=== PATIENT | female | born 2000 | race Caucasian/White ===

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

== ENCOUNTER 2018-09-15 07:41 | Emergency (ER) | payer OTHER ==
[~2018-09-15] VITALS: Ht 167.6 cm; Wt 79.1 kg
[~2018-09-15 07:41] MED LIST: CIPR500T4 PO; IBUP-1542 PO; METR500T PO; ZOF8 PO
[2018-09-15 08:06] VITALS: Ht 167.6 cm; Wt 79.1 kg
[2018-09-15] MEDS ORDERED: ONDANSETRON 4 MG INJ IV STA (08:19)
[2018-09-15] MEDS ORDERED: morphine 2 MG INJ IV STA ×2 (08:19→10:21)
[2018-09-15] MEDS ORDERED: IBUPROFEN 200 MG TAB ONE (08:30)
[2018-09-15] MEDS ORDERED: SOD CHLORIDE 0.9% 1,000 ML IV ONE (09:00)
--- NOTE | 2018-09-15 12:01 | ERD ---
ER Documentation Chief Complaint Chief Complaint C/O ABD PAIN X 2 DAYS. HPI 17-year-old female presents the emergency department complaining of abdominal pain. Patient states that she has had episodes of abdominal pain in the past. Over the last 2-3 days, patient has had nonspecific abdominal discomfort. The pain is poorly localized and associated with no fevers, chills. She is been nauseous but has had no vomiting. She reports no diarrhea or urinary symptoms. She states that she has a regular menstrual cycles chronically, but no worsening pain/vaginal bleeding or other gynecologic symptoms associated with this discomfort. Currently, she reports the pain is mild to moderate. ROS All systems reviewed and are negative except as per history of present illness. Medications Home Meds Discontinued Scripts Ondansetron Hcl* (Zofran*) 8 Mg Tab, 8 MG PO Q6H PRN for NAUSEA AND OR VOMITING, #20 TAB Prov:JOHNNY GOMEZ MD 09/24/17 Metronidazole* (Flagyl*) 500 Mg Tablet, 500 MG PO TID for 7 Days, TAB Prov:JOHNNY GOMEZ MD 09/24/17 Ciprofloxacin Hcl* (Ciprofloxacin Hcl*) 500 Mg Tablet, 500 MG PO BID for 7 Days, TAB Prov:JOHNNY GOMEZ MD 09/24/17 Ibuprofen* (Motrin*) 600 Mg Tab, 600 MG PO Q6, #20 TAB Prov:JACQUE AG PA-C 02/05/15 Allergies Allergies: Coded Allergies: No Known Allergy (Unverified , 07/26/13) PMhx/Soc History of Surgery: No Anesthesia Reaction: No Hx Neurological Disorder: No Hx Respiratory Disorders: No Hx Cardiac Disorders: No Hx Psychiatric Problems: No Hx Miscellaneous Medical Probl: No Hx Alcohol Use: No Hx Substance Use: No Hx Tobacco Use: No Smoking Status: Never smoker FmHx Noncontributory for chief complaint Physical Exam Vitals Vital Signs Date Temp Pulse Resp B/P (MAP) Pulse Ox O2 O2 Flow FiO2 Time Delivery Rate 09/15/18 100.6 109 17 109/56 99 08:06 (73) Physical Exam GENERAL: The patient is well developed and appropriate for usual state of health in no apparent distress HEENT: Pupils equal, round, and reactive to light. EOMI. There is no scleral icterus. NECK: C-spine is soft and supple, there is no meningismus. There is no cervical lymphadenopathy. LUNGS: Clear to auscultation bilaterally. There are no rales, wheezes or rhonchi. HEART: Regular rate and rhythm, no murmurs, clicks, rubs or gallops. ABDOMEN: Soft, non-tender, non-distended. There are bowel sounds in all four quadrants. No rebound or guarding. EXTREMITIES: There is no peripheral cyanosis or edema. No focal swelling or erythema. NEURO: The patient moves all four extremities with 5/5 strength. Cranial nerves II - XII are intact. Normal gait. Alert and oriented SKIN: There is no apparent rash or petechiae. HEME/LYMPHATIC: There is no evidence of excessive bruising or lymphedema. PSYCHIATRIC: The patient does not appear anxious or depressed. Result Diagram: 09/15/18 0832 09/15/18 0832 Results 24 hrs Laboratory Tests Test 09/15/18 08:32 White Blood Count 7.1 10^3/ul Red Blood Count 5.01 10^6/ul Hemoglobin 14.5 g/dl Hematocrit 42.1 % Mean Corpuscular Volume 84.0 fl Mean Corpuscular Hemoglobin 28.9 pg Mean Corpuscular Hemoglobin Concent 34.4 g/dl Red Cell Distribution Width 11.9 % Platelet Count 199 10^3/UL Mean Platelet Volume 9.6 fl Immature Granulocytes % 0.300 % Neutrophils % 86.3 % Lymphocytes % 6.6 % Monocytes % 6.7 % Eosinophils % 0.0 % Basophils % 0.1 % Nucleated Red Blood Cells % 0.0 /100WBC Immature Granulocytes # 0.020 10^3/ul Neutrophils # 6.2 10^3/ul Lymphocytes # 0.5 10^3/ul Monocytes # 0.5 10^3/ul Eosinophils # 0.0 10^3/ul Basophils # 0.0 10^3/ul Nucleated Red Blood Cells # 0.0 10^3/ul Urine Color YELLOW Urine Clarity SLIGHTLY CLOUDY Urine pH 5.0 Urine Specific Ly[place] 1.030 Urine Ketones NEGATIVE mg/dL Urine Nitrite NEGATIVE mg/dL Urine Bilirubin NEGATIVE mg/dL Urine Urobilinogen 2+ mg/dL Urine Leukocyte Esterase NEGATIVE Shelly/ul Urine Microscopic RBC 12 /HPF Urine Microscopic WBC 0 /HPF Urine Squamous Epithelial Cells FEW /HPF Urine Mucus FEW /HPF Urine Hemoglobin 1+ mg/dL Urine Glucose NEGATIVE mg/dL Urine Total Protein NEGATIVE mg/dl Sodium Level 141 mmol/L Potassium Level 4.1 mmol/L Chloride Level 101 mmol/L Carbon Dioxide Level 25 mmol/L Anion Gap 15 Blood Urea Nitrogen 13 mg/dl Creatinine 0.53 mg/dl Est Glomerular Filtrat Rate mL/min > 60 mL/min Glucose Level 106 mg/dl Calcium Level 8.9 mg/dl Total Bilirubin 0.6 mg/dl Direct Bilirubin 0.00 mg/dl Indirect Bilirubin 0.6 mg/dl Aspartate Amino Transf (AST/SGOT) 85 IU/L Alanine Aminotransferase (ALT/SGPT) 123 IU/L Alkaline Phosphatase 87 IU/L Total Protein 8.0 g/dl Albumin 4.7 g/dl Globulin 3.30 g/dl Albumin/Globulin Ratio 1.42 Lipase 132 U/L Current Medications Medications Dose Sig/Iam Start Time Status Last (Trade) Ordered Route PRN Stop Time Admin Dose Reason Admin Morphine 2 mg ONCE STAT 09/15/18 DC 09/15/18 Sulfate IV 08:19 08:44 (morphine) 09/15/18 08:20 Ondansetron 4 mg ONCE STAT 09/15/18 DC 09/15/18 HCl (Zofran IV 08:19 08:44 Inj) 09/15/18 08:20 Ibuprofen 200 mg STK-MED 09/15/18 DC (Motrin) ONCE .ROUTE 08:30 09/15/18 08:31 Sodium 1,000 ml @ Q1H ONCE 09/15/18 DC 09/15/18 Chloride 1,000 mls/hr IV 09:00 09:08 09/15/18 09:59 Morphine 2 mg ONCE STAT 09/15/18 DC 09/15/18 Sulfate IV 10:21 10:57 (morphine) 09/15/18 10:23 Procedures/MDM Patient was taken to a room, seen and evaluated. Comfort measures were initiated. Diagnostic tests were ordered and reviewed. 3 LEAD RHYTHM STRIP: Normal sinus rhythm without ectopy RADIOLOGY: Reviewed with the radiologist REEVALUATION: Serial examinations of the abdomen initially demonstrated worsening discomfort in the right lower quadrant for which the CT scan was ordered. However, after further observation, this pain is also gone away and she remains with a completely benign abdominal examination. Diagnostic tests were completely evaluated and discussed with the patient and her family and outpatient follow-up was arranged. MEDICAL DECISION MAKING: Patient presents with abdominal pain of uncertain etiology. Differential diagnosis considered includes appendicitis, diverticulitis, cholecystitis and other intra-abdominal medical and surgical concerns. I have reviewed the patients lab studies and imaging as well as multiple examinations of the abdomen. At this time, the diagnostic cause of her pain is still unclear. However, she appears to be low risk and has no evidence of appendicitis, cholecystitis or other high-risk intra-abdominal concerns. Patient appears to be clinically nontoxic and appropriate for outpatient supportive care. Departure Diagnosis: Primary Impression: Abdominal pain Condition: Stable Patient Instructions: Abdominal Pain Additional Instructions: See your doctor for follow-up as discussed. Take a copy of your test results, if appropriate, to this follow-up visit. See your doctor or return here if your symptoms do not improve as expected. At any time, please return to the emergency department for any change or worsening in her symptoms. HUNTER MULTANI Sep 15, 2018 12:01
[2018-09-15 12:13] VITALS: BP 120/64; PULSE 64; RESP 16
== END 2018-09-15 12:16 | disposition home or self-care (01) ==
LOC: E/R 07:41
DX: R10.9 Unspecified abdominal pain (principal); R10.2 Pelvic and perineal pain; R11.0 Nausea
CPT/HCPCS: 74176; 76705; 76856; 80053; 81001; 83690; 85025; J2270; J2405; J7030; Z7610; 36415; 96374; 96375; 96376